=== PATIENT | male | born 1965 | race Caucasian/White ===

== ENCOUNTER 2016-07-16 02:23 | Emergency (ER) | payer BC ==
[2016-07-16] MEDS ORDERED: solu-MEDROL 125 MG IV ONE (02:36)
[2016-07-16] MEDS ORDERED: Pepcid 20 MG VIAL IV ONE ×2 (02:36→02:45)
[2016-07-16] MEDS ORDERED: BENADRYL 50 MG/ML IV ONE (02:39)
--- NOTE | 2016-07-16 02:40 | ERPHSYRPT ---
- History of Present Illness Time Seen by Provider: 07/16/16 02:34 Source: patient, family Exam Limitations: no limitations Physician History: 50 year old male with acute onset of urticaric reaction and history of the same 2 years ago; had CABG 3-4 years ago and no recurrence of symptoms; no new meds but was exposed to smoke today Timing/Duration: today Quality: itchy Severity: moderate Location: torso Possible Causes: no cause identified Associated Symptoms: change in skin texture, rash Allergies/Adverse Reactions: No Known Drug Allergies Allergy (Unverified 12/15/13 06:23) Home Medications: Aspirin 81 mg PO DAILY PRN 12/15/13 [History] Atorvastatin Calcium [Lipitor] 40 mg PO DAILY 12/15/13 [History] Clopidogrel Bisulfate [Clopidogrel] 75 mg PO DAILY PRN 12/15/13 [History] Lisinopril [Zestril] 2.5 mg PO DAILY 12/15/13 [History] Metoprolol Tartrate 25 mg PO BID 12/15/13 [History] Hx Tetanus, Diphtheria Vaccination/Date Given: Yes Hx Influenza Vaccination/Date Given: No Hx Pneumococcal Vaccination/Date Given: No - Review of Systems Constitutional: No Fever, No Chills Eyes: No Symptoms Ears, Nose, & Throat: No Symptoms Respiratory: No Cough, No Dyspnea Cardiac: No Chest Pain, No Edema, No Syncope Abdominal/Gastrointestinal: No Abdominal Pain, No Nausea, No Vomiting, No Diarrhea Genitourinary Symptoms: No Dysuria Musculoskeletal: No Back Pain, No Neck Pain Skin: Pruritis, Rash Neurological: No Dizziness, No Focal Weakness, No Sensory Changes Psychological: No Symptoms Endocrine: No Symptoms All Other Systems: Reviewed and Negative - Past Medical History Pertinent Past Medical History: Yes Neurological History: No Pertinent History Cardiac History: Hypertension, Other Respiratory History: No Pertinent History Endocrine Medical History: No Pertinent History Musculoskeletal History: Arthritis Other Medical History: CABG x2 in 2011, - Past Surgical History Past Surgical History: Yes Cardiac: CABG, Cardiac Catheterization - Social History Smoking Status: Former smoker Exposure to second hand smoke: No Drug Use: none Patient Lives Alone: No - Nursing Vital Signs Nursing Vital Signs: Initial Vital Signs Temperature 97.1 F Temperature Source Oral Pulse Rate 88 Respiratory Rate 22 Blood Pressure [Right Arm] 125/85 Pain Intensity 0 - Physical Exam General Appearance: no apparent distress, alert Eye Exam: PERRL/EOMI, eyes nml inspection Ears, Nose, Throat Exam: normal ENT inspection, pharynx normal, moist mucous membranes Neck Exam: normal inspection, non-tender, supple, full range of motion Respiratory Exam: normal breath sounds, lungs clear, No respiratory distress Cardiovascular Exam: regular rate/rhythm, normal heart sounds Gastrointestinal/Abdomen Exam: soft, mass, No tenderness Back Exam: normal range of motion, rash, No CVA tenderness, No vertebral tenderness Extremity Exam: normal inspection, normal range of motion Neurologic Exam: alert, oriented x 3, cooperative, normal mood/affect, sensation nml, No motor deficits Skin Exam: normal color, warm, dry SpO2 Interpretation: normal SpO2: 96 Oxygen Delivery: Room Air - Course Nursing assessment & vital signs reviewed: Yes Ordered Tests: Active Orders 24 hr Category Date Time Status EKG-ER Only STAT Care 07/16/16 02:36 Active IV Insertion STAT Care 07/16/16 02:36 Active Medication Summary Discontinued Medications Generic Name Dose Route Start Last Admin Trade Name Freq PRN Reason Stop Dose Admin Diphenhydramine HCl 50 mg 07/16/16 02:39 07/16/16 02:55 Benadryl 50 Mg/Ml IV 07/16/16 02:40 50 mg STAT ONE Administration Diphenhydramine HCl Confirm 07/16/16 02:45 Benadryl 50 Mg/Ml Administered 07/16/16 02:46 Dose 50 mg .ROUTE .STK-MED ONE Famotidine 20 mg 07/16/16 02:36 07/16/16 02:55 Pepcid 20 Mg Vial IV 07/16/16 02:37 20 mg STAT ONE Administration Famotidine Confirm 07/16/16 02:45 Pepcid 20 Mg Vial Administered 07/16/16 02:46 Dose 20 mg IV .STK-MED ONE Methylprednisolone Sodium Succinate 125 mg 07/16/16 02:36 07/16/16 02:55 Solu-Medrol 125 Mg IV 07/16/16 02:37 125 mg STAT ONE Administration Methylprednisolone Sodium Succinate Confirm 07/16/16 02:45 Solu-Medrol 125 Mg Administered 07/16/16 02:46 Dose 125 mg .ROUTE .STK-MED ONE - Progress Progress: improved, re-examined Progress Note: 07/16/16 03:28 pt symptoms resolved in ER with sandra. Counseled pt/family regarding: diagnosis, need for follow-up - Departure Time of Disposition: 03:28 Departure Disposition: Home Clinical Impression: Allergic reaction Condition: Good Critical Care Time: No Instructions: Reduce Environmental Allergens, Rash, General Allergic Reactions , Hives Additional Instructions: followup with your Dr. to consider allergy workup and further treatment. return meantime if symptoms recur. Prescriptions: Methylprednisolone Packet [Medrol Dosepack] 4 mg PO UD #1 packet
[2016-07-16] MEDS ORDERED: BENADRYL 50 MG/ML ONE (02:45)
[2016-07-16] MEDS ORDERED: solu-MEDROL 125 MG ONE (02:45)
[2016-07-16 04:12] VITALS: BP 122/74; PULSE 100; O2SAT 97
== END 2016-07-16 04:12 | disposition home or self-care (01) ==
LOC: ED 02:23
DX: T78.40XA Allergy, unspecified, initial encounter (principal); Z95.1 Presence of aortocoronary bypass graft; Z79.899 Other long term (current) drug therapy; I10 Essential (primary) hypertension
CPT/HCPCS: 36000; 93005; 96374; 96375; 99284; J1200; J2930

== ENCOUNTER 2017-11-08 06:01 | Day surgery (SDC) | payer BC ==
[~2017-11-08 06:01] MED LIST: Lactated Ringers 1,000 ML IV SCH
[2017-11-08] MEDS ORDERED: BREVIBLOC 100 MG/10 ML IV ONE (06:02)
[2017-11-08] MEDS ORDERED: DIPRIVAN 200 MG/20 ML IV ONE (06:02)
[2017-11-08 08:23] VITALS: O2SAT 96
--- NOTE | 2017-11-08 08:27 | OP ---
SURGERY DATE/TIME: 11/08/2017719 PREOPERATIVE DIAGNOSIS: Rectal bleeding. POSTOPERATIVE DIAGNOSIS: Sigmoid colon polyp x2. PROCEDURE: Colonoscopy. SURGEON: Jesus Alberto Crooks M.D. ANESTHESIA: MAC by Patel Carl CRNA. ESTIMATED BLOOD LOSS: Minimal. SPECIMENS: Two hot forceps polypectomies from the sigmoid colon. DESCRIPTION OF PROCEDURE: After informed written consent was obtained, the patient was taken to the endoscopy suite. He underwent monitored anesthesia and a digital rectal exam showed normal sphincter tone and no internal lesions. The scope was inserted into the rectum and sequentially the entire colonic mucosa was traversed. The level of cecum was reached and verified with direct visualization of ileocecal valve. Prep was noted to be fair to good. Upon withdrawal careful mucosal inspection revealed scattered diverticula and also throughout the sigmoid colon. At 30 cm the scope length in the sigmoid colon there was a broad-based pedunculated polyp which was removed with hot forceps in piecemeal fashion and sent for pathology. Upon further withdrawal there was another small sessile polyp at 25 cm which was removed with hot forceps with adequate removal and good hemostasis. Prior to withdrawal retroflexion showed some minimal internal hemorrhoids. The scope was removed. The patient was transferred to the recovery room in good condition. I have advised him to follow up in one week for pathology results.
[2017-11-08 08:38] VITALS: BP 125/81; PULSE 95
== END 2017-11-08 08:48 | disposition home or self-care (01) ==
LOC: SDC 06:01
PROVIDERS: ATTEND Family Medicine
DX: K63.5 Polyp of colon (principal); K62.5 Hemorrhage of anus and rectum
CPT/HCPCS: 88305; 94250; J2704

== ENCOUNTER 2019-02-24 10:14 | Day surgery (SDC) | payer BC ==
--- NOTE | 2019-02-21 13:01 | HP ---
PROCEDURE DATE: 02/24/19 HISTORY OF PRESENT ILLNESS: Patient is a 53 y/o with a couple right upper quadrant pain attacks. No jaundice. No change in bowel movements. He had one attack after a subway sandwich. US showed some cholelithiasis. [place] he had symptomatic cholelithiasis, chronic cholecystitis. He denied any prior abdominal surgeries. PAST MEDICAL HISTORY: He has had heart disease. PAST SURGICAL HISTORY: He had a coronary artery bypass graft in 2013. CURRENT MEDICATIONS: Medications include Plavix, Lisinopril, and metoprolol. ALLERGIES: BIAXIN. FAMILY HISTORY: Heart disease, cancer. SOCIAL HISTORY: Quit smoking 2013. Reports occasional alcohol use, denies abuse. REVIEW OF SYSTEMS: 14 systems reviewed negative or noncontributory other than above and per preadmission questionnaire. No chest pain or palpitations. PHYSICAL EXAMINATION: GENERAL: No acute distress. HEENT: Sclerae nonicteric. NECK: No JVD. CHEST: Equal excursion. Nonlabored breathing. CVS: Regular rate and rhythm. ABDOMEN: Soft. Some mild tenderness in right upper quadrant. No peritoneal signs. EXTREMITIES: No significant edema. NEURO: Alert and oriented, moving extremities symmetrically. No gross motor deficits noted. IMPRESSION: 1. SYMPTOMATIC CHOLELITHIASIS, CHRONIC CHOLECYSTITIS. FEEL PATIENT WILL BENEFIT FROM CHOLECYSTECTOMY IF HE GETS CARDIAC CLEARANCE. RECOMMEND PROCEEDING WITH CHOLECYSTECTOMY. Shown the gallbladder pamphlet and risk sheet. Explained the procedure in detail, but not limited to, bleeding; infection; risk of bile leak, bile duct injury, or retained stone or sludge possibly requiring further procedures either open or endoscopic retrograde cholangiopancreatography; general risk of anesthesia, deep vein thrombosis, pulmonary embolism, or pneumonia; perioperative risks of aches, pains, bloating, constipation and/or loose stools possibly chronic in nature; possibility that the procedure may not improve his symptoms and he may need further work-up and/or testing with endoscopy or other studies or procedure. He understands and agrees to the planned procedure. Will proceed with laparoscopic cholecystectomy, possible open for symptomatic cholelithiasis/chronic cholecystitis as an outpatient.
[~2019-02-24 10:14] MED LIST changes: +DIPRIVAN 200 MG/20 ML IV ONE; +Lactated Ringers 1,000 ML IV ONE; -Lactated Ringers 1,000 ML IV SCH; +SUBLIMAZE 250 MCG/5 ML ONE; +Sensorcaine 0.25% 10 ML ONE; +Versed 2 MG/2 ML Injection ONE; +Zemuron 100 MG/10 ML ONE
[2019-02-24] MEDS ORDERED: Lactated Ringers 1,000 ML IV SCH (10:30)
[2019-02-24] MEDS ORDERED: MEFOXIN 2 GM PREMIX** 2 GM/50 ML ML IV SCH (11:00)
[2019-02-24] MEDS ORDERED: Quelicin Fliptop 200 MG/10 ML ONE (12:13)
[2019-02-24] MEDS ORDERED: Xylocaine-Mpf 2% 5 Ml Vial ONE (12:13)
[2019-02-24] MEDS ORDERED: BREVIBLOC 100 MG/10 ML IV ONE (12:13)
[2019-02-24] MEDS ORDERED: BRIDION 200MG/2ML IV ONE (12:23)
[2019-02-24] MEDS ORDERED: Zofran 4 MG/2 ML VIAL ONE (12:39)
[2019-02-24] MEDS ORDERED: MORPHINE SULFATE 10 MG/ML ONE (13:05)
[2019-02-24] MEDS ORDERED: SUBLIMAZE 100 MCG/2 ML ONE (13:06)
[2019-02-24 14:37] VITALS: BP 143/92; PULSE 73; O2SAT 97
--- NOTE | 2019-02-24 14:53 | OP ---
SURGERY DATE/TIME: 02/24/2019 1145 PREOPERATIVE DIAGNOSIS: Symptomatic cholelithiasis, chronic cholecystitis. POSTOPERATIVE DIAGNOSIS: Symptomatic cholelithiasis, chronic cholecystitis. PROCEDURE: Laparoscopic cholecystectomy. SURGEON: Dr. Doni Abreu. ANESTHESIA: General. ESTIMATED BLOOD LOSS: Minimal. INDICATIONS: As noted above. Risks and benefits explained in detail but not limited to and consent obtained. DESCRIPTION OF PROCEDURE AND FINDINGS: The patient was taken to the operating room. General anesthesia induced. Abdomen prepped and draped in the usual sterile fashion. After official time out and no disagreement with planned procedure, a transverse incision made at the supraumbilical area. Fascia grasped and pulled upward. Veress needle inserted and tested with saline. Pneumoperitoneum accomplished insufflating opening pressure of 0-15. A 5 mm bladeless port and camera were inserted without difficulty followed by two - 5 mm right upper quadrant ports and 11 mm epigastric port and this was later switched to 12 mm epigastric port. The gallbladder grasped retracted over the edge of the liver. He had extensive dense chronic inflammatory reaction but dissecting posterior, lateral to anterior fashion slowly and carefully the main cystic artery lying anterior was carefully isolated directly on the gallbladder wall clipped x3 and divided, this opened up the angle. Slowly and carefully the cystic duct and infundibular junction slowly and carefully well skeletonized until the critical view obtained both anteriorly and posteriorly. Once this was accomplished cystic duct well skeletonized until critical view obtained both anteriorly and posteriorly. It was clipped x3. It should be noted the 5 mm clip pulp roller went across and was felt to be more secure to have a large clipper. Therefore switched to a 12 port and a large clip was used to clip the cystic duct stump x3 and divided. The gallbladder is slowly and carefully dissected free from its dense attachment to liver bed staying directly on the gallbladder wall clipping additional two to three small side branches off the cystic artery directly on the gallbladder wall as necessary. Just prior to releasing from final attachments to the anterior edge of the liver, a small vein anterior to the level was also clipped. The gallbladder finally released, placed in the provided bag from hospital, pulled up and out the epigastric wound and passed off. Port replaced. Copious amount of irrigation accomplished lateral to the liver and subhepatic space irrigating until clear. Liver bed re-inspected. Clips noted to be in place cystic duct and cystic artery stumps. There were no signs of any active bleeding or bile leakage. It was felt there is no benefit from drain placement at this point. Fascial defect 12 mm site closed with puncture closure device with #1 Vicryl under direct vision of the camera. Pneumoperitoneum decompressed. The wound irrigated out. Skin incision closed with 4-0 Vicryl. Steri-Strips and sterile dressing applied. 0.25% Marcaine local had been injected along the skin incision fascial defect at the beginning of the procedure. There were no immediate complications. Findings discussed with the family out in the waiting area.
== END 2019-02-24 14:23 | disposition home or self-care (01) ==
LOC: SDC 10:14
PROVIDERS: ATTEND Surgery
DX: K80.10 Calculus of gallbladder with chronic cholecystitis without obstruction (principal); I25.10 Atherosclerotic heart disease of native coronary artery without angina pectoris; Z79.899 Other long term (current) drug therapy; Z79.01 Long term (current) use of anticoagulants
CPT/HCPCS: 88304; J0330; J0694; J2250; J2270; J2405; J2704; J3010

== ENCOUNTER 2022-10-28 18:13 | Emergency (ER) | payer BC ==
[2022-10-28] MEDS ORDERED: Adacel Vial IM ONE ×2 (18:22→18:28)
[2022-10-28] MEDS ORDERED: Zofran 4 MG/2 ML VIAL IV ONE (18:22)
[2022-10-28] MEDS ORDERED: MORPHINE SULFATE 10 MG/ML IV ONE (18:22)
[2022-10-28] MEDS ORDERED: Sodium Chloride 0.9% 1000 ML 1,000 ML IV STA (18:22)
[2022-10-28] MEDS ORDERED: Zofran 4 MG/2 ML VIAL ONE (18:26)
[2022-10-28] MEDS ORDERED: Sodium Chloride 0.9% 1000 ML 1,000 ML ONE (18:27)
[2022-10-28] MEDS ORDERED: MORPHINE SULFATE 10 MG/ML ONE (18:27)
[2022-10-28] MEDS ORDERED: ROCEPHIN 1 Gm-D5w 50 ml Bag** 1 G/50 ML IVPB IV STA (18:29)
[2022-10-28 18:37] LABS: Absolute Neutrophil Ct (ANC) 7.16 x10^3/uL (1.4-6.9); BASOPHIL % 0.7 % (0.0-0.4); Basophil (Absolute #) 0.07 x10^3/uL (0-0.4); Eosinophil % 1.6 % (0.00-5.0); Eosinophil (Absolute #) 0.17 x10^3/uL (0-0.5); Hematocrit 48.7 % (42-50); Hemoglobin 16.2 g/dL (12.5-18.0); IMMATURE GRAN # 0.04 x10^3u/L (0.00-0.03); IMMATURE GRAN % 0.4 % (0.00-0.4); Lymphocytes % 20.2 % (24.0-44.0); Mean Cell Volume 84.5 fL (78-100); Mean Corpuscular Hemoglobin 28.1 pg (26-32); Mean Corpuscular Hgb Concent. 33.3 g/dL (32-36); Mean Platelet Volume 11.3 fL (7.5-11.0); Monocyte (Absolute #) 0.86 x10^3/uL (0.0-1.3); Monocytes % 8.3 % (0.0-12.0); Neutrophil % 68.8 % (36.0-66.0); Platelet Count 386 x10^3/uL (150-450); Red Blood Count 5.76 x10^6/uL (4.1-5.6); Red Cell Distribution Width 13.7 % (11.5-14.0); White Blood Count 10.4 x10^3/uL (4.0-10.5)
[2022-10-28] MEDS ORDERED: ROCEPHIN 1 Gm-D5w 50 ml Bag** 1 G/50 ML IVPB IV ONE (18:41)
[2022-10-28 18:50] LABS: ALBUMIN 4.6 g/dL (3.5-5.0); ALKALINE PHOSPHATASE 124 U/L (38-126); ANION GAP 20.9 MEQ/L (5-15); BLOOD UREA NITROGEN 10 mg/dL (9-20); CHLORIDE 106 mmol/L (98-107); Calcium 9.3 mg/dL (8.4-10.2); Carbon Dioxide 17 mmol/L (22-30); Creatinine 1 0.83 mg/dL (0.66-1.25); EST GLOMERULAR FILTRATION RATE > 60.0 ML/MIN; Glucose 106 mg/dL (74-106); Potassium 4.2 mmol/L (3.5-5.1); SGOT/AST 26 U/L (17-59); SGPT/ALT 26 U/L (0-50); SODIUM 140 mmol/L (137-145); Total Protein 7.9 g/dL (6.3-8.2)
[2022-10-28 19:05] VITALS: BP 140/79; TEMP 97.6
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
[2022-10-28] MEDS ORDERED: SILVADENE 50 GM TP ONE ×2 (19:09→19:10)
[2022-10-28] MEDS ORDERED: MORPHINE SULFATE 4 MG INJ IV ONE (19:36)
[2022-10-28] MEDS ORDERED: HYDROCODONE-ACETAMIN 10-325 MG PO PRN (19:37)
[2022-10-28] MEDS ORDERED: MORPHINE SULFATE 4 MG INJ ONE (19:53)
[2022-10-28] MEDS ORDERED: HYDROCODONE-ACETAMIN 10-325 MG ONE (19:53)
[2022-10-28 20:19] VITALS: PULSE 89; RESP 16; O2SAT 96
== END 2022-10-28 20:16 | disposition home or self-care (01) ==
LOC: ED 18:13
DX: T22.112A Burn of first degree of left forearm, initial encounter (principal); T22.111A Burn of first degree of right forearm, initial encounter; T20.19XA Burn of first degree of multiple sites of head, face, and neck, initial encounter; X08.8XXA Exposure to other specified smoke, fire and flames, initial encounter; E78.5 Hyperlipidemia, unspecified; I10 Essential (primary) hypertension; Z79.899 Other long term (current) drug therapy; Z79.891 Long term (current) use of opiate analgesic
CPT/HCPCS: 36415; 80053; 85025; 90471; 90715; 96360; 96365; 96374; 96375; 96376; 99284; J0696; J2270; J2405; A9270-GY

== ENCOUNTER 2024-02-27 05:56 | Day surgery (SDC) | payer BC ==
[2024-02-27 06:45] VITALS: RESP 18
[2024-02-27] MEDS ORDERED: DIPRIVAN 200 MG/20 ML IV ONE ×3 (07:04→07:28)
--- NOTE | 2024-02-27 07:56 | PCM.DCORD ---
- Discharge Disposition: Home, Self-Care Condition: Stable Prescriptions: New PANTOPRAZOLE 40 mg Tablet [Protonix 40MG Tablet] 40 mg PO QPM 30 Days #30 tab Continue Ezetimibe 10 mg [Zetia 10 MG] 10 mg PO DAILY Atorvastatin Calcium [Lipitor] 80 mg PO HS [place]-3/Dha/Epa/Fish Oil [[place] 3 500 Softgel] 1 each PO DAILY Sacubitril/Valsartan [Entresto 24 mg-26 mg Tablet] 1 tab PO BID Empagliflozin [Jardiance] 10 mg PO DAILY Carvedilol [Coreg ] 6.25 mg PO BID Magnesium Oxide [Magnesium] 400 mg PO UD Nitroglycerin 0.4 mg SL UD Discontinued Clopidogrel Bisulfate [Clopidogrel] 75 mg PO DAILY PRN #0 Aspirin EC 81 mg [Ecotrin 81 mg] 1 tab PO DAILY Additional Instructions: hold aspirin and plavix x 3 days, start protonix. f/u 1 week Follow up with: DOMENICA LOCKWOOD MD [Primary Care Provider] - 1 Week
[2024-02-27 08:11] VITALS: PULSE 76; TEMP 97.5
[2024-02-27 08:25] VITALS: BP 119/69; O2SAT 96
--- NOTE | 2024-02-29 01:39 | OP ---
SURGERY DATE/TIME: 02/27/2024 [id number] PREOPERATIVE DIAGNOSES: 1) Chronic gastroesophageal reflux disease. 2) Hematemesis. 3) Screening colonoscopy. POSTOPERATIVE DIAGNOSES: 1) Moderate gastritis. 2) Normal colon. 3) Diverticulosis. PROCEDURE: Esophagogastroduodenoscopy and colonoscopy. SURGEON: Jesus Alberto Crooks MD ANESTHESIA: MAC by Tra Felix CRNA. ESTIMATED BLOOD LOSS: Minimal. SPECIMENS: Cold forceps biopsy of the gastric antrum x2. DESCRIPTION OF PROCEDURE AND FINDINGS: After informed written consent was obtained, the patient was taken to the endoscopy suite. He was placed in the left lateral decubitus position and bite block was inserted. Anesthesia was titrated to the desired level of consciousness and the endoscope was inserted in the posterior oropharynx. Under direct visualization, the esophagus was traversed. The esophagus had a normal mucosal appearance free of any lesions or defects. Upon entering into the stomach, there was normal rugated gastric mucosa free of any lesions or defects. In the gastric antrum region, there was some moderate gastritis-type changes with no active bleeding or focal ulceration. Pylorus was traversed and the duodenum had a normal mucosal appearance. Two cold forceps biopsies were taken from the gastric antrum and sent for H pylori testing. The remainder of the exam was unremarkable. Scope was removed, then the scopes were switched. Digital rectal exam showed normal sphincter tone and no internal lesions. The scope was inserted in the rectum, and then sequentially the entire colonic mucosa was traversed. The level of the cecum was reached and verified under direct visualization of the ileocecal valve. Upon withdrawal, there were scattered diverticula, prep was noted to be good. There were no other mucosal lesions encountered. Prior to withdrawal, retroflexion was performed and showed no internal lesions. Scope was removed and patient was transferred to the recovery room in good condition. I have advised that he hold his aspirin and Plavix for 3 more days and we will start him on PPI therapy and await pathology results and follow up in 1 week.
== END 2024-02-27 08:25 | disposition home or self-care (01) ==
LOC: SDC 05:56
PROVIDERS: ATTEND Family Medicine
DX: Z12.11 Encounter for screening for malignant neoplasm of colon (principal); K92.0 Hematemesis; K21.9 Gastro-esophageal reflux disease without esophagitis; K29.70 Gastritis, unspecified, without bleeding; K57.30 Diverticulosis of large intestine without perforation or abscess without bleeding
CPT/HCPCS: J2704